=== PATIENT | female | born 1970 | race Caucasian/White ===

== ENCOUNTER 2018-01-13 07:37 | Emergency (ER) | payer SELFPAY ==
[2018-01-13] MEDS ORDERED: MORPHINE SULFATE 10 MG/ML VIAL IVP ONE ×2 (07:57→10:33)
[2018-01-13] MEDS ORDERED: 0.9 % SODIUM CHLORIDE 1,000 ML BAG IV ONE (07:57)
[2018-01-13] MEDS ORDERED: ASPIRIN 81 MG CHEWABLE TABLET PO ONE (07:57)
--- NOTE | 2018-01-13 07:58 | Emergency Department Record ---
History of Present Illness - General Chief Complaint: Chest Pain Stated Complaint: CHEST PAIN Time Seen by Provider: 01/13/18 07:44 Source: Patient Mode of Arrival: Ambulatory Limitations: No limitations - History of Present Illness Initial Comments: 47 yo female presents with chest discomfort that started shortly before 7am. She was at work at her computer and developed a pressure like tightness in the chest. The symptoms come and go. She states she feels short of breath when it occurs. She denies a history of similar symptoms. She does have a family history of CAD. Her mother and four of her mother's sisters have heart disease. He mother developed CAD early 50's. No current medications or smoking. No history of work up for chest pain. No calf pain. No HRT. She has had seizures in the past. Last was 2 years ago. No current PCP since Dr Jung retired. No history of recent foot intolerance, GERD, gall bladder issues. MD Complaint: Chest pain -: Hour(s) (2.5) Onset: During rest Pain Location: Substernal Pain Radiation: None Severity: Moderate Quality: Aching, Heaviness, Tightness Consistency: Intermittent Improves With: Nothing Worsens With: Nothing Context: Other (No recent illness) Anginal Symptoms: Other Treatments Prior to Arrival: None - Related Data Home Medications Medication Instructions Recorded Confirmed Last Taken No Home Med [NO HOME MEDS] 01/13/18 01/13/18 Unknown Allergies Allergy/AdvReac Type Severity Reaction Status Date / Time No Known Drug Allergies Allergy Verified 01/13/18 07:41 Review of Systems Constitutional: Denies: Chills, Fever, Malaise, Weakness Eyes: Denies: Eye discharge ENT: Denies: Congestion, Throat pain Respiratory: Reports: Dyspnea. Denies: Cough, Hemoptysis, Stridor, Wheezes Cardiovascular: Reports: Chest pain. Denies: Dyspnea on exertion, Edema, Palpitations, Syncope Endocrine: Denies: Fatigue Gastrointestinal: Denies: Abdominal pain, Diarrhea, Nausea, Vomiting Genitourinary: Denies: Dysuria Musculoskeletal: Denies: Arthralgia, Back pain, Joint swelling, Myalgia Skin: Denies: Bruising, Change in color, Rash Neurological: Denies: Headache, Numbness, Weakness Psychiatric: Denies: Anxiety Hematological/Lymphatic: Denies: Blood Clots, Easy bleeding, Easy bruising, Swollen glands Physical Exam - General General Appearance: Alert, Oriented x3, Cooperative, No acute distress Limitations: No limitations - Head Head exam: Normal inspection - Eye Eye exam: Normal appearance, PERRL. negative: Conjunctival injection, Scleral icterus - ENT ENT exam: Normal exam Ear exam: Normal external inspection Nasal Exam: Normal inspection Mouth exam: Normal external inspection - Neck Neck exam: Normal inspection, Full ROM. negative: Tenderness - Respiratory Respiratory exam: Normal lung sounds bilaterally. negative: Respiratory distress - Cardiovascular Cardiovascular Exam: Regular rate, Normal rhythm, Normal heart sounds Peripheral Pulses: 2+: Radial (R), Radial (L) - GI/Abdominal GI/Abdominal exam: Soft. negative: Distended, Guarding, Rebound, Rigid, Tenderness - Rectal Rectal exam: Deferred - exam: Deferred - Extremities Extremities exam: Normal inspection, Full ROM, Normal capillary refill. negative: Pedal edema, Tenderness - Back Back exam: Denies: CVA tenderness (R), CVA tenderness (L) - Neurological Neurological exam: Alert, Oriented X3 - Psychiatric Psychiatric exam: Normal affect, Normal mood - Skin Skin exam: Dry, Intact, Normal color, Warm Course - Reevaluation(s) Reevaluation #1: EKG EKG #1: 0739 Rate: 72 Rhythm: sinus [place]: left Intervals: normal ST segments: LVH, poor R wave progression Prior: no old 01/13/18 07:45 01/13/18 08:26 The CBC and CMP were reviewed. NO acute changes 01/13/18 08:33 The Troponin and D-dimer are normal 01/13/18 08:38 The pain is returning Repeat EKG ordered 01/13/18 08:52 EKG EKG #2: Rate: 81 Rhythm: sinus [place]: left Intervals: normal ST segments: LVH, poor R wave Prior: No dynamic changes from #1 01/13/18 09:16 The patient reported significant relieve with nitro I recommended further evaluation given her non specific EKG changes, recurrent pressure, and family history 01/13/18 09:[address] Granados. We discussed the case and symptoms. He recommends transfer to [facility] for further evaluation. Medical Decision Making - Lab Data Result diagrams: 01/13/18 07:20 01/13/18 07:20 Disposition Disposition: Transfer Clinical Impression: Chest pain Qualifiers: Chest pain type: unspecified Qualified Code(s): R07.9 - Chest pain, unspecified Disposition: Acute Care Hospital Transfer Transfer To: [facility] Reason For Transfer: Chest Pain Accepting Physician: [facility] Time Discussed w/Accepting Physician: : Condition: (1) Good Forms: Patient Portal Access Time of Disposition: : Quality - Quality Measures Quality Measures: N/A - Blood Pressure Screening Does Patient Have Any of the Following: No Blood Pressure Classification: Pre-Hypertensive BP Reading Systolic Measurement: 118 Diastolic Measurement: 87 Screening for High Blood Pressure: < Pre-Hypertensive BP, F/U Documented > [ [id number]] Pre-Hypertensive Follow-up Interventions: Referral to alternative/primary care provider.
[2018-01-13 08:06] LABS: BASO % 0.2 % (0-6); EOS % 0.7 % (0-6); GRAN % 62.6 % (47-80); HEMATOCRIT 40.6 % (35.0-47.0); HEMOGLOBIN 13.4 gm/dl (11.6-16.0); LYMPH % 30.3 % (16-45); MEAN CELL VOLUME 94.6 fl (81-97); MEAN CORPUSCULAR HEMOGLOBIN 31.2 pg (27-33); MEAN PLATELET VOLUME 9.6 fl (7.4-10.4); MONO % 6.2 % (0-9); PLATELET COUNT 247 K/uL (130-400); RED BLOOD COUNT 4.29 M/uL (3.80-5.40); RED CELL DISTRIBUTION WIDTH 12.8 % (11.5-14.5)
[2018-01-13 08:21] LABS: BLOOD UREA NITROGEN 15 mg/dL (6-20); CREATININE 0.7 mg/dL (0.5-0.9); EST GLOMERULAR FILTRATION RATE > 60 mL/min; PARTIAL THROMBOPLASTIN TIME 27.7 SECONDS (24.5-39.1); PROTHROMBIN TIME (PATIENT) 9.6 SECONDS (9.5-12.1)
[2018-01-13 08:22] LABS: TOTAL PROTEIN 7.1 g/dL (6.6-8.7)
[2018-01-13 08:24] LABS: GLUCOSE,RANDOM 109 mg/dL (74-109)
[2018-01-13 08:26] LABS: ALB/GLOB RATIO 1.6 (1.1-1.8); ALBUMIN 4.4 g/dL (4.0-5.0); ALKALINE PHOSPHATASE 75 U/L (35-104); ALT/SGPT 15 U/L (<33); AST/SGOT 19 U/L (10.0-35.0)
[2018-01-13] MEDS ORDERED: LORAZEPAM 2 MG/ML VIAL IV ONE (08:38)
[2018-01-13] MEDS ORDERED: NITROGLYCERIN 0.4MG SL TABLET #25 BTL SL ONE ×3 (08:38→08:52)
--- NOTE | 2018-01-15 22:17 | RADIOLOGY REPORT ---
EXAM: CHEST 2 VIEWS HISTORY: SUDDEN ONSET RETROSTERNAL PAIN WITH INSPIRATION. NAUSEA. TECHNIQUE: Upright AP and lateral views of the chest. COMPARISON: None. FINDINGS: The lung volumes are low. The heart is not enlarged and no gross pulmonary venous hypertension is seen. No confluent airspace opacity is identified, nor is there costophrenic angle blunting or pneumothorax. IMPRESSION: LOW LUNG VOLUMES. NO CONVINCING EVIDENCE OF ACUTE CARDIOPULMONARY DISEASE. JOB NUMBER: [id number] MTDD
== END 2018-01-13 10:53 | disposition short-term general hospital (02) ==
LOC: ER 07:37
DX: R07.89 Other chest pain (principal); R11.0 Nausea
CPT/HCPCS: 99285 ×2; 96376; 96374; 96375; 85025; 85730; 85610; 80053; 84484; 85379; 71046; 93005; 93010; J2060; J2270; J7030